=== PATIENT | female | born 1980 | race Caucasian/White ===

== ENCOUNTER 2021-03-14 14:15 | Emergency (ER) | payer OTHER, SELFPAY ==
[2021-03-14 14:20] VITALS: BP 118/82; PULSE 63; RESP 16; TEMP 36.1; O2SAT 100
[2021-03-14 16:49] VITALS: BP 119/79; PULSE 61; RESP 16; O2SAT 100
--- NOTE | 2021-03-14 17:07 | ED.GENADULT ---
HPI - General Adult General Chief complaint: Headache Stated complaint: headache Time Seen by Provider: 03/14/21 16:49 Source: patient and RN notes reviewed History of Present Illness HPI narrative: Patient is a 40 y/o female complaining of headache starting this morning. She describes her headache as throbbing and rates it as 10/10. She states that her headache is mostly on the left side with radiation to left neck. She took Fioricet, which did not help. She has some nausea, but no vomiting. She has no focal weakness or numbness. Related Data Allergies Allergy/AdvReac Type Severity Reaction Status Date / Time Sulfa (Sulfonamide Allergy Hives Verified 03/14/21 16:56 Antibiotics) Review of Systems Constitutional: Constitutional: Denies chills, Denies fever(s), Reports headache(s) and Denies weakness Eyes: Eyes: Denies blurry vision ENT: Reports headache(s) and Reports neck pain Comments: +left ear pain Cardiovascular: Cardiovascular: Denies chest pain and Denies dyspnea Respiratory: Respiratory: Denies cough and Denies dyspnea Gastrointestinal: Gastrointestinal: Denies abdominal pain, Denies diarrhea, Denies nausea and Denies vomiting Genitourinary: Genitourinary: Denies hematuria and Denies dysuria Musculoskeletal: Musculoskeletal: Denies back pain and Denies neck pain Neurologic: Reports headache(s) and Denies weakness Exam Const: General: no acute distress and well developed Orientation/consciousness: oriented to person, oriented to place, oriented to time and patient oriented x3 HENMT: Head: normocephalic Ears: external ears normal General nose exam: Normal external nose present Eyes: General: appearance normal, both eyes and all related structures Conjunctivae: conjunctivae normal Neck: Neck: normal visual inspection and full ROM Chest: Chest palpation & inspection: normal inspection of the chest and no tenderness Resp: Effort & Inspection: normal respiratory effort Auscultation: clear to auscultation bilaterally Cardio: Rate: regular rate Rhythm: regular rhythm GI: GI Palp: No abdominal tenderness and Yes Soft to palpation Skin: General skin exam: normal color and turgor normal Neuro: General: oriented to person, oriented to place, oriented to time and patient oriented x3 Cranial nerves: Yes CN's II-XII intact bilaterally Cognition (Neuro): normal cognition Speech: normal speech Motor exam (neuro): 5/5 motor strength present throughout Sensory Exam: normal sensation Coordination: [id number]-[id number] test normal and qhui-dg-gjgw test normal Extrem: General: normal to inspection, full ROM and no pedal edema Psych: Appearance: grossly normal Mental Status: mental status grossly normal Affect: normal affect Course Reevaluation(s) Reevaluation #1: Rechecked. Patient feels well. She has no headache at this time. Date: 03/14/21 Time: 20:02 Vital Signs Vital signs: Vital Signs Temperature 36.1 C L 03/14/21 14:20 Pulse Rate 63 03/14/21 14:20 Respiratory Rate 16 03/14/21 14:20 Blood Pressure 118/82 03/14/21 14:20 Pulse Oximetry 100 03/14/21 14:20 Temperature 36.1 C L 03/14/21 14:20 Pulse Rate 66 03/14/21 20:51 Respiratory Rate 15 03/14/21 20:51 Blood Pressure 110/67 03/14/21 20:51 Pulse Oximetry 100 03/14/21 20:51 Medical Decision Making Vital Signs Vital Signs: Vital Signs Temperature 36.1 C L 03/14/21 14:20 Pulse Rate 63 03/14/21 14:20 Respiratory Rate 16 03/14/21 14:20 Blood Pressure 118/82 03/14/21 14:20 Pulse Oximetry 100 03/14/21 14:20 Temperature 36.1 C L 03/14/21 14:20 Pulse Rate 66 03/14/21 20:51 Respiratory Rate 15 03/14/21 20:51 Blood Pressure 110/67 03/14/21 20:51 Pulse Oximetry 100 03/14/21 20:51 Lab Data Result diagrams: 03/14/21 17:14 03/14/21 17:14 Labs: Lab Results 03/14/21 03/14/21 Range/Units 17:14 17:14 WBC 8.0 (4.5-10.0) K/mm3 RBC 4.42 (4.2-
[2021-03-14] MEDS: diphenhydrAMINE HCl INJ 50 MG/ML VIAL IV PUSH (17:12)
[2021-03-14] MEDS: KETOROLAC 30 MG/ML VIAL (*BKC) IV PUSH (17:12)
[2021-03-14] MEDS: METOCLOPRAMIDE HCL INJ 10 MG/2 ML VIAL IV PUSH (17:12)
[2021-03-14] MEDS: SODIUM CHLORIDE 0.9% IV 1,000 ML 999 ML IV CONT (17:14)
[2021-03-14 17:23] LABS: Basophils Percent Auto 0.1 % (0.2-1.2); Eosinophils Percent Auto 0.5 % (0-4.4); Hematocrit 41.2 % (37.0-47.0); Hemoglobin 13.9 g/dL (12.0-15.0); Immature Granulocyte Absolute 0.02 K/mm3 (0.00-0.031); Immature Granulocyte Percent A 0.3 % (0-0.5); Lymphocytes Absolute Auto 1.63 K/mm3 (0.9-3.2); Lymphocytes Percent Auto 20.5 % (18.3-44.2); Mean Corpuscular HGB Conc 33.7 g/dl (32-36); Mean Corpuscular Hemoglobin 31.4 pg (26-34); Mean Corpuscular Volume 93.2 fl (80-100); Monocytes Absolute Auto 0.6 K/mm3 (0.1-0.6); Monocytes Percent Auto 7.3 % (2.6-8.5); Neutrophils Absolute Auto 5.7 K/mm3 (1.3-6.7); Neutrophils Percent Auto 71.3 % (45.5-73.1); Platelet Count Result 322 k/mm3 (150-375); Red Blood Count 4.42 M/mm3 (4.2-5.4); Red Cell Distribution Width 13.5 % (11.5-14.5)
[2021-03-14 17:39] LABS: Anion Gap 8 mmol/L (8-16); Blood Urea Nitrogen 9 mg/dL (7-17); Calcium 9.3 mg/dL (8.4-10.2); Carbon Dioxide 23 mmol/L (22-30); Chloride 107 mmol/L (98-107); Estimated CRCL calculation 76 ml/min; Estimated Glomerular Filt Rate > 60; Glucose 109 mg/dL (65-110); Potassium 3.8 mmol/L (3.4-5.0); Sodium 138 mmol/L (137-145)
[2021-03-14 20:51] VITALS: BP 110/67; PULSE 66; RESP 15; O2SAT 100
== END 2021-03-14 20:52 | disposition home or self-care (01) ==
PROVIDERS: Emergency Provider Emergency Medicine; PCP Obstetrics & Gynecology
DX: G43.909 Migraine, unspecified, not intractable, without status migrainosus (principal)
CPT/HCPCS: 36415; 80048; 81025; 85025; 96361; 96374; 96375; 99284; J1200; J1885; J2765; J7030

== ENCOUNTER 2021-05-16 08:45 | Emergency (ER) | payer OTHER, SELFPAY ==
--- NOTE | 2021-05-16 08:50 | ED.URI ---
HPI - URI/Sore Throat General Chief Complaint: Upper Respiratory Infection Stated Complaint: Headache,Sore throat,Fatigue Time Seen by Provider: 05/16/21 08:50 Source: patient, family, RN notes reviewed and old records reviewed Mode of arrival: ambulatory Limitations: no limitations History of Present Illness HPI Narrative: 40-year-old female presents to the [facility] with complaints of fatigue, sore throat and headache since last night. Took a migraine medication yesterday. Requesting a COVID test. Missed less than 24 hours. Denies fevers, chest pain, abdominal pain. States that she is COVID vaccinated but not flu vaccinated. Offered a flu test, patient declined. MD elicited complaint: sore throat and other (Fatigue, headache) Related Data Home Medications Medication Instructions Recorded Confirmed [id number]-fuapebyisaxic-fqtm 1 tablet PO DIRECTED 05/16/21 05/16/21 levothyroxine 50 mcg PO DAILY 05/16/21 05/16/21 Allergies Allergy/AdvReac Type Severity Reaction Status Date / Time Sulfa (Sulfonamide Allergy Hives Verified 05/16/21 08:47 Antibiotics) Review of Systems Review of Systems: All systems reviewed & are unremarkable except as noted in HPI and below Constitutional: Constitutional: Reports as per HPI, Denies chills, Reports fatigue, Denies fever(s) and Denies headache(s) Eyes: Eyes: Reports no additional eye complaints ENT: Reports as per HPI, Denies vertigo, Denies dizziness, Denies headache(s), Denies nasal congestion and Reports sore throat Cardiovascular: Cardiovascular: Reports no additional cardiovascular complaints, Denies chest pain, Denies syncope, Denies rapid heart rate and Denies dyspnea Respiratory: Respiratory: Reports no additional respiratory complaints, Denies cough, Denies dyspnea and Denies wheezing Gastrointestinal: Gastrointestinal: Reports no additional gastrointestinal complaints, Denies abdominal pain, Denies diarrhea, Denies nausea and Denies vomiting Musculoskeletal: Musculoskeletal: Reports no additional musculoskeletal complaints and Denies numbness Integumentary/Breasts: Skin/Breast: Reports system reviewed and no additional complaints, except as docu Neurologic: Reports as per HPI, Denies vertigo, Denies dizziness, Denies syncope, Reports headache(s), Denies focal weakness and Denies numbness Psychiatric: Psychiatric: Reports no additional psychiatric complaints Allergic/Immunologic: Allergic/Immunologic: Reports no additional allergic/immunologic complaints and Denies wheezing PMFSH Past Medical History Medical History (Updated 05/16/21 @ 09:02 by Tiffanie Hernandez) Migraine Thyroid disorder Comments At the time of my signature, I reviewed and agree with the nursing past medical, surgical, social, and family history. There is no relevant family history pertinent to the patient complaint. Exam Const: General: cooperative, healthy appearing, no acute distress, well developed and alert Nutritional Appearance: well nourished Orientation/consciousness: patient oriented x3 Limitations: no limitations HENMT: Head: normal to inspection Ears: external ears normal, TM's normal bilaterally and EAC's normal Eyes: Conjunctivae: conjunctivae normal Pupils: Equal, round and reactive pupils present Direct Ophthalmoscopy: no photophobia Neck: Neck: normal visual inspection, no lymphadenopathy and no meningeal signs Chest: Chest palpation & inspection: normal inspection of the chest Resp: Effort & Inspection: normal respiratory effort and no use of accessory muscles Auscultation: clear to auscultation bilaterally, no crackles, no rales, no rhonchi and no wheezes Cardio: Rate: regular rate Rhythm: regular rhythm Back/Spine/Pelvis: Back: no CVA tenderness Skin: General skin exam: normal color Rashes: no rashes Wounds: no wounds Neuro: General: patient oriented x3, moves all extremities, no meningeal signs and no focal motor deficits Cranial nerves: Yes Equal, ro
[2021-05-16 08:54] VITALS: BP 125/67; PULSE 68; RESP 16; TEMP 36.2; O2SAT 99
== END 2021-05-16 09:05 | disposition home or self-care (01) ==
PROVIDERS: Emergency Provider Nurse Practitioner
DX: B34.9 Viral infection, unspecified (principal); Z20.822 Contact with and (suspected) exposure to COVID-19; E07.9 Disorder of thyroid, unspecified
CPT/HCPCS: 99211; G0463

== ENCOUNTER → 2021-05-17 09:20 | Outpatient (CLI) | payer OTHER, SELFPAY ==
[2021-05-17 21:10] LABS: SARS-CoV-2 RNA PCR Negative
== END ==
PROVIDERS: Visit Provider Nurse Practitioner
DX: B34.9 Viral infection, unspecified (principal); Z20.822 Contact with and (suspected) exposure to COVID-19
CPT/HCPCS: C9803; U0003; U0005

== ENCOUNTER 2022-02-09 03:24 | Emergency (ER) | payer OTHER, SELFPAY ==
[2022-02-09] VITALS (20 sets, daily range): BP systolic 108–138; BP diastolic 64–82; PULSE 58–82; RESP 10–18; TEMP 36.4; O2SAT 98–100
[2022-02-09] MEDS: SODIUM CHLORIDE 0.9% IV 1,000 ML 999 ML IV CONT (04:29)
[2022-02-09] MEDS: KETOROLAC 30 MG/ML VIAL (*BKC) IV PUSH (04:30)
[2022-02-09] MEDS: diphenhydrAMINE HCl INJ 50 MG/ML VIAL 25 MG IV PUSH (04:31)
[2022-02-09] MEDS: METOCLOPRAMIDE HCL INJ 10 MG/2 ML VIAL IV PUSH (04:35)
--- NOTE | 2022-02-09 04:37 | ED.HA ---
HPI - Headache General Chief Complaint: Headache Stated Complaint: migraine Time Seen by Provider: 02/09/22 04:02 History of Present Illness HPI Narrative: Patient is a 41-year-old female who presents ER with headache. Ongoing for 2 days. Right posterior moving to right spiritism. Associated with photophobia no improvement with Fioricet. She has had some nausea with vomiting. No known triggers. No new stress. Related Data Home Medications Medication Instructions Recorded Confirmed fmqfncfpdh-zvryjrdrlkxwv-prsqhnvw 1 tablet PO DIRECTED 05/16/21 05/16/21 50 mg-325 mg-40 mg tablet levothyroxine 50 mcg tablet 50 mcg PO DAILY 05/16/21 05/16/21 Allergies Allergy/AdvReac Type Severity Reaction Status Date / Time Sulfa (Sulfonamide Allergy Hives Verified 05/16/21 08:47 Antibiotics) Review of Systems Review of Systems: All systems reviewed & are unremarkable except as noted in HPI and below Constitutional: Constitutional: Denies chills and Denies fever(s) Eyes: Eyes: Denies change in vision and Reports photophobia ENT: Denies nasal congestion and Denies sore throat Gastrointestinal: Gastrointestinal: Denies abdominal pain, Reports nausea and Reports vomiting Neurologic: Reports headache(s), Denies focal weakness and Denies numbness PMFSH Past Medical History Medical History (Updated 02/09/22 @ 05:45 by Riccardo Lund MD) Migraine Thyroid disorder Surgical History Surgical History (Updated 02/09/22 @ 04:38 by Riccardo Lund MD) No pertinent past surgical history Social History Social History (Updated 02/09/22 @ 04:38 by Riccardo Lund MD) Smoking status: Never smoker Exam Narrative: GENERAL: Uncomfortable-appearing, lying in bed with sunglasses on and lights off, Well-nourished. HEAD: Normocephalic, atraumatic. CHEST: Clear to auscultation. No respiratory distress. HEART: Regular rate and rhythm. Normal peripheral pulses. EXTREMITIES: Normal range of motion. No edema. SKIN: Warm, dry, no rash. NEURO: Alert and oriented x3. PSYCH: Normal mood and affect. Course Course Emergency Course: Headache improved with Reglan/Benadryl/Toradol. Discharge home. Vital Signs Vital signs: Vital Signs Temperature 97.5 F L 02/09/22 03:37 Pulse Rate 77 02/09/22 03:37 Respiratory Rate 14 02/09/22 03:37 Blood Pressure 138/64 02/09/22 03:37 Pulse Oximetry 100 02/09/22 03:37 Oxygen Delivery Room Air 02/09/22 03:37 Temperature 97.5 F L 02/09/22 03:37 Pulse Rate 64 02/09/22 04:31 Respiratory Rate 17 02/09/22 04:31 Blood Pressure 108/78 02/09/22 04:31 Pulse Oximetry 98 02/09/22 04:31 Oxygen Delivery Room Air 02/09/22 03:37 Discharge Plan Discharge Clinical Impression: Migraine Patient Disposition: Home, Self-Care Condition: Stable Instructions: Migraine Headache (ED) Additional Instructions: Return to the ER if fever over 100.4 ?F, you cannot keep down food/water/medication, you develop focal weakness or numbness in arm or leg, you have additional concerns. Prescriptions: No Action lyorfgajrl-agqsyiojcrfym-oxhl 50-325-40 mg tablet 1 tablet PO DIRECTED levothyroxine 50 mcg tablet 50 mcg PO DAILY Follow-up/Referrals: PHYSICIAN,OUTSIDE MACHINIST APPRENTICE [Primary Care Provider] - Satya Boyce MD [Physician] - 1 Week
== END 2022-02-09 06:14 | disposition home or self-care (01) ==
PROVIDERS: Emergency Provider Emergency Medicine
DX: G43.909 Migraine, unspecified, not intractable, without status migrainosus (principal); E07.9 Disorder of thyroid, unspecified
CPT/HCPCS: 96361; 96374; 96375; 99284; J1200; J1885; J2765; J7030

== ENCOUNTER 2023-01-13 10:38 | Emergency (ER) | payer OTHER, SELFPAY ==
--- NOTE | 2023-01-13 10:39 | ED.EYEPROB ---
HPI - Eye Problem General Chief complaint: Eye Problems Stated complaint: Eyes Irritation Time Seen by Provider: 01/13/23 10:39 Source: patient Mode of arrival: ambulatory Limitations: no limitations History of Present Illness HPI Narrative: Patient is a 42-year-old female who presents with bilateral eye irritation, right worse than left. Patient states right eye was matted shut when she woke up and had thick yellow-green discharge. Patient states she went to [employer] yesterday. Patient states eyes feel irritated and burning sensation. Denies any changes in vision or eyelid swelling. Denies any fever, chills, congestion, sore throat, ear pain Related Data Allergies Allergy/AdvReac Type Severity Reaction Status Date / Time Sulfa (Sulfonamide Allergy Hives Verified 01/13/23 10:41 Antibiotics) Review of Systems Review of Systems: All systems reviewed & are unremarkable except as noted in HPI and below Constitutional: Constitutional: Denies body ache(s), Denies fever(s), Denies headache(s), Denies malaise and Denies weakness Eyes: Eyes: Denies blurry vision, Reports eye discharge, Reports irritation, Reports itchy eyes, Denies loss of vision and Denies eye pain ENT: Denies otalgia, Denies headache(s), Denies nasal discharge, Denies sinus pain and Denies sore throat Cardiovascular: Cardiovascular: Denies chest pain, Denies irregular heart rhythm and Denies dyspnea Respiratory: Respiratory: Denies dyspnea Gastrointestinal: Gastrointestinal: Denies abdominal pain, Denies diarrhea, Denies nausea and Denies vomiting Musculoskeletal: Musculoskeletal: Denies back pain, Denies myalgias and Denies arthralgias Integumentary/Breasts: Skin/Breast: Denies pruritus and Denies rash Neurologic: Denies headache(s), Denies loss of vision and Denies weakness Psychiatric: Psychiatric: Reports no additional psychiatric complaints Allergic/Immunologic: Allergic/Immunologic: Reports itchy eyes PMFSH Past Medical History Medical History Migraine Thyroid disorder Surgical History Surgical History No pertinent past surgical history Social History Social History Smoking status: Never smoker Comments At time of signature, agree with nursing past medical, surgical, social and family history. There is no relevant family history pertinent to the presenting complaint. Exam Const: General: cooperative, healthy appearing, comfortable, no acute distress and well nourished Nutritional Appearance: well nourished Orientation/consciousness: patient oriented x3 Limitations: no limitations HENMT: Head: normal to inspection, normocephalic and atraumatic Ears: external ears normal Face/Nose/Sinus: Normal external nose present, normal facial exam and face symmetric Face and sinus: normal facial exam and face symmetric Mouth: Yes lip normal Eyes: General: appearance normal, both eyes and all related structures Visual Gonzalez: normal visual gonzalez by confrontation Alignment and Position: alignment normal and position normal Periorbital: periorbital findings normal Eyelids: eyelids normal Conjunctivae: conjunctival abnormality bilateral conjunctival injection diffuse and discharge mucoid Sclera: scleral abnormality bilateral scleral injection diffuse Pupils: Equal, round and reactive pupils present EOM: EOMs intact bilaterally Direct Ophthalmoscopy: no photophobia Other: No hyphema, no foreign body under the lids. Neck: Neck: normal visual inspection, full ROM, no lymphadenopathy and no meningeal signs Chest: Chest palpation & inspection: normal inspection of the chest Resp: Effort & Inspection: normal respiratory effort and able to speak in complete sentences Auscultation: clear to auscultation bilaterally Cardio: Rate: regular rate Rhythm: regular rhythm Hea
[2023-01-13 10:47] VITALS: BP 105/62; PULSE 62; RESP 16; TEMP 36.6; O2SAT 100
== END 2023-01-13 11:00 | disposition home or self-care (01) ==
PROVIDERS: Emergency Provider Nurse Practitioner Family
DX: H10.9 Unspecified conjunctivitis (principal); E03.9 Hypothyroidism, unspecified
CPT/HCPCS: 99213; G0463

== ENCOUNTER 2023-05-13 12:35 | Emergency (ER) | payer OTHER, SELFPAY ==
--- NOTE | 2023-05-13 12:40 | ED.EAR ---
HPI - Ear Problem General Chief complaint: Ear Stated complaint: Left Ear Irritation Time Seen by Provider: 05/13/23 12:37 Source: patient Mode of arrival: ambulatory Limitations: no limitations History of Present Illness HPI Narrative: Sunni is a 42-year-old female patient presenting to the clinic today with complaints of runny nose, cough, congestion, sore throat, left ear pain, body aches, chills times 2-3 days. She reports the left ear pain just started last night. Related Data Allergies Allergy/AdvReac Type Severity Reaction Status Date / Time Sulfa (Sulfonamide Allergy Hives Verified 05/13/23 12:48 Antibiotics) Review of Systems Review of Systems: Pertinent positives per HPI. Patient denies any rash, headache, visual changes, dizziness, shortness of breath, chest pain, palpitations, nausea, vomiting, diarrhea, constipation, abdominal pain, or any urinary issues. PMFSH Past Medical History Medical History Migraine Thyroid disorder Surgical History Surgical History No pertinent past surgical history Social History Social History Smoking status: Never smoker Comments At the time of my signature, I reviewed and agree with the nursing past medical, surgical, social, and family history. There is no relevant family history pertinent to the patient complaint. Exam Narrative: General: Well-developed, well nourished, in no apparent distress Head: Normocephalic, atraumatic Eyes: Pupils equally round and reactive to light bilaterally, EOM intact, sclera and conjunctive clear, no discharge, lids normal Ears: Right TM intact and clear, Left TM intact, bulging, red, ear canals clear, no drainage, grossly hearing normal. Nose: Nares patent, clear nasal discharge, no inflammation, no sinus tenderness. Mouth: Oropharynx red without lesions or masses, good dentition, MMM. Neck: Supple, trachea midline, no enlargement of anterior or posterior cervical nodes, no thyroid masses or goiter palpable. Cardio: Regular rate and rhythm, s1 and s2 normal, no murmur appreciated. Resp: Clear to auscultation bilaterally anteriorly and posteriorly, no rhonchi, rales, wheezing or rubs Course Course Emergency Course: Portions of this record may have been created with voice recognition software. Level of Care: Express Care Visit Vital Signs Vital signs: Vital signs reviewed Medical Decision Making MDM Narrative Medical decision making narrative: At the time of visit patient is resting comfortably on the exam table. Patient appears to be nontoxic. Supportive measures were discussed with the patient and they voiced understanding discharge instructions and agrees to treatment plan. Return precautions reviewed Discharge Plan Discharge Clinical Impression: Acute viral syndrome URI (upper respiratory infection) Qualifiers: URI type: unspecified viral URI Qualified Code(s): J06.9 - Acute upper respiratory infection, unspecified Pharyngitis Qualifiers: Pharyngitis/tonsillitis etiology: unspecified etiology Qualified Code(s): J02.9 - Acute pharyngitis, unspecified Otitis media Qualifiers: Otitis media type: suppurative Chronicity: acute Laterality: left Recurrence: non-recurrent Spontaneous tympanic membrane rupture: without spontaneous rupture Qualified Code(s): H66.002 - Acute suppurative otitis media without spontaneous rupture of ear drum, left ear Patient Disposition: Home, Self-Care Condition: Stable Instructions: Antibiotic Form, Pharyngitis (ED), Ear Infection (ED), Upper Respiratory Infection (ED), Viral Syndrome (ED) Additional Instructions: COVID and influenza testing was negative in the clinic today. Take prescription medications only as prescribed-Prednisone and amoxicillin Increase fluids and stay well h
[2023-05-13 12:47] VITALS: BP 131/63; PULSE 81; RESP 18; TEMP 37.2; O2SAT 100
[2023-05-13 12:48] VITALS: BP 131/63; PULSE 81; RESP 18; TEMP 37.2; O2SAT 100
== END 2023-05-13 13:03 | disposition home or self-care (01) ==
PROVIDERS: Emergency Provider Nurse Practitioner Family
DX: B34.9 Viral infection, unspecified (principal); J06.9 Acute upper respiratory infection, unspecified; J02.9 Acute pharyngitis, unspecified; H66.002 Acute suppurative otitis media without spontaneous rupture of ear drum, left ear; Z20.822 Contact with and (suspected) exposure to COVID-19
CPT/HCPCS: 87426; 87804; 99213; G0463

== ENCOUNTER 2024-05-27 19:49 | Emergency (ER) | payer OTHER, SELFPAY ==
[2024-05-27 19:59] VITALS: BP 128/85; PULSE 68; RESP 16; TEMP 37.2; O2SAT 99
[2024-05-27 20:51] LABS: EDINFLUASCREEN Negative (Negative); EDINFLUBSCREEN Negative (Negative)
--- NOTE | 2024-05-27 20:56 | ED.ABDPAIN ---
HPI - Abdominal Pain General Chief Complaint: Abdominal Pain Stated Complaint: stomach pains Time Seen by Provider: 05/27/24 20:40 Source: patient and RN notes reviewed Mode of arrival: ambulatory Limitations: no limitations History of Present Illness HPI narrative: Patient presents today with a 4 to five-day history of upper abdominal pain that is only present after eating and lasts for approximately 2 hours. She also reports some intermittent diarrhea. Denies nausea, vomiting, fever, acid reflux heartburn symptoms. No history of gastritis. No history of appendectomy or cholecystectomy. She currently rates her pain 2/10. She has tried Gas-X, Pepto-Bismol, Tums without relief. Related Data Allergies Allergy/AdvReac Type Severity Reaction Status Date / Time Sulfa (Sulfonamide Allergy Hives Verified 05/27/24 20:39 Antibiotics) Review of Systems Review of Systems: CONSTITUTIONAL: Denies body aches, fever, chills, or sweats. EYES: Denies visual changes, redness, or discharge. ENT: Denies rhinorrhea, congestion, sore throat, or otalgia. CARDIOVASCULAR: Denies chest pain, palpitations, or edema. RESPIRATORY: Denies cough or dyspnea. GASTROINTESTINAL: Denies nausea, vomiting. + diarrhea, abdominal pain GENITOURINARY: Denies dysuria or hematuria. SKIN: Denies rash, itching, or wounds. MUSCULOSKELETAL: Denies back pain, joint pain, or myalgia. NEUROLOGIC: Denies headache, numbness, tingling, or weakness. PSYCH: Denies depression or anxiety. PMFSH Past Medical History Medical History Migraine Thyroid disorder Surgical History Surgical History No pertinent past surgical history Social History Social History Smoking status: Never smoker Comments At time of signature, I have reviewed and agree with nursing past medical, surgical, social and family history unless otherwise noted. Please see nursing chart for further information. There is no relevant family history pertinent to the presenting complaint Exam Narrative: GENERAL: Well-appearing, well-nourished, and in no acute distress. HEAD: Normocephalic, atraumatic. EYES: EOMI. No redness or drainage. Conjunctivae normal. ENT: Mucous membranes pink and moist. NECK: Normal AROM. CHEST: No respiratory distress. Clear to auscultation. HEART: Regular rate and rhythm. No murmur appreciated. ABDOMEN: Soft, nontender, nondistended, normal active bowel sounds. EXTREMITIES: Normal range of motion. No edema. SKIN: Warm, dry, no rash. Capillary refill normal. Normal skin turgor. NEURO: No focal deficits. Alert and oriented x3. Gait steady. PSYCH: Normal affect. No signs of depression or anxiety. Course Course Level of Care: Express Care Visit Vital Signs Vital signs: Vital Signs Temperature 98.9 F 05/27/24 19:59 Pulse Rate 68 05/27/24 19:59 Respiratory Rate 16 05/27/24 19:59 Blood Pressure 128/85 05/27/24 19:59 Pulse Oximetry 99 05/27/24 19:59 Oxygen Delivery Room Air 05/27/24 19:59 Temperature 98.9 F 05/27/24 19:59 Pulse Rate 68 05/27/24 19:59 Respiratory Rate 16 05/27/24 19:59 Blood Pressure 128/85 05/27/24 19:59 Pulse Oximetry 99 05/27/24 19:59 Oxygen Delivery Room Air 05/27/24 19:59 Reviewed MDM - Abdominal Pain MDM Narrative Medical decision making narrative: Influenza negative. Patient requested influenza test. Patient does not have an acute abdomen today. Discussed eating some bland foods and taking omeprazole to see if this helps with her symptoms. Recommend PCP or GI follow-up for further evaluation. ED precautions given. Differential Diagnosis Differential diagnosis: Likely abdominal pain, gastroenteritis and other (Gastritis, GERD, cholecystitis, biliary colic) Lab Data Attestation: I reviewed the patient's lab results. Labs: Lab Results 05/27/24 Range/Units 20:47 POC Influenza A Ag Negative (Negative) POC Influenza B Ag Negative (Negative) Critical Care Time Critical Care Time Critical Care Time: No Discharge Plan Discharge Clinical Impression: Intermittent upper abdominal pain Patient Disposition: Home, Self-Care Condition: Stable Instructions: Gastritis (DC), Diet for Stomach Ulcers and Gastritis (ED) Additional Instructions: Please take the omeprazole as prescribed. Stay with bland foods for the next several days to see if this helps with your symptoms. Stay elevated for at least 2 hours after eating before going to bed. Schedule a follow-up visit with either a horse racer or PCP. You may call the physician liaison number to help find a physician at [phone]. As discussed, if symptoms worsen in any way or you start running a fever or vomiting, please go to the ER immediately for further evaluation and treatment. Your blood pressure was elevated above 120/80 today at Urgent Care. This puts you above the threshold for follow up. Please schedule a followup visit with your personal physician as soon as possible, for further evaluation and treatment. Even blood pressure exceeding 120/80 may indicate pre-hypertension. Patient Language: Kazakh Prescriptions: New omeprazole 20 mg capsule,delayed release(DR/EC) 20 mg PO BID 10 Days Qty: 20 0RF No Action prednisone 20 mg tablet 40 mg PO DAILY 5 Days Qty: 10 0RF amoxicillin 875 mg tablet 875 mg PO Q12H 10 Days Qty: 20 0RF Follow-up/Referrals: PHYSICIAN,ASSOCIATE DIRECTOR CAREER SERVICES [Primary Care Provider] - Desean Mai MD [Physician] - Time of Disposition: 20:54
== END 2024-05-27 21:00 | disposition home or self-care (01) ==
PROVIDERS: Emergency Provider Nurse Practitioner
DX: R10.10 Upper abdominal pain, unspecified (principal)
CPT/HCPCS: 87804; 99213; G0463

== ENCOUNTER 2024-06-02 13:55 | Outpatient (CLI) | payer OTHER, SELFPAY ==
--- OUTSIDE RECORDS SUMMARY | 2024-06-02 14:07 | XMS_ITS | Clinical Summary ---
Author Organization [facility] Address [facility]. [place], [place] [address] [place] [address] Care Team Providers Care Information Systems Coordinator Name Role Phone Linden Myles NP Primary Care Provider Unavail able Allergies Active Allergy Reactions Criticality Noted Date Comments Sulfa Antibiotics Hives 2011 Medications butalbital-aceta minophen-caffein e 50-325-40 MG tablet Take 1 tablet by mouth every 4 (four) hours. 4 9 Active probiotic capsule Take 1 capsule by mouth daily with breakfast. 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 Irregular periods/menstrual cycles 03/26/2017 Abnormal thyroid blood test 03/26/2017 Acute sinusitis 04/04/2012 Nausea with vomiting 04/04/2012 Contact dermatitis 01/07/2012 Rash 2011 Comments Yes Resolved Problems Problem Noted Date Diagnosed Date Resolved Date Encounter for preventive health examination 2011 01/08/2020 Immunizations Name Administration Dates Next Due Dtap 02/10/2018 Fluarix 12/28/2012 Fluarix (IIV4) 01/23/2019 Influenza (Generic) 02/10/2018 Influenza Adult (Generic) 02/17/2018 Tdap (Generic) 02/17/2018,02/10/2018,09/08/2014 ,11/04/2012 Family History Medical History Relation Comments Diabetes Father Diabetes Mother Seizures Sister Relation Status Comments Father Alive Mother Alive Sister Alive Social History Tobacco Use Types Packs/Day Years Used Date Smoking Tobacco: Never Smokeless Tobacco: Never Alcohol Use Standard Drinks/Week Comments No 0 (1 standard drink = 0.6 oz pur e alcohol) AUDIT-C Answer Date Recorded Frequency of Alcohol Consumption Never 03/25/2018 Average Number of Drinks Not on file 018 Frequency of Binge Drinking Not on file 02/28 PHQ-2 Answer Date Recorded PHQ-2 Score - If the patient scores above 3, please move on to questions 3-9 0 03/30/2020 Comments Yes Sex and Gender Information Value Date Recorded Sex Assigned at Not on file Legal Sex Female 4:19 PM CDT Gender Identity Not on file Sexual Orientation Not on file Last Filed Vital Signs Vital Sign Reading Time Taken Comments Blood Pressure 110/68 03/30/2020 4:06 PM CDL INSTRUCTOR Pulse 75 03/30/2020 4:06 PM CDL INSTRUCTOR Temperature 36.6 ??C (97.8 ??F) 03/30/2020 4:06 PM CS T Respiratory Rate 20 03/30/2020 4:06 PM CDL INSTRUCTOR Oxygen Saturation 98% 03/30/2020 4:06 PM CDL INSTRUCTOR Inhaled Oxygen Concentration - - Weight 65 kg (143 lb 3.2 oz) 03/30/2020 4:06 PM CDL INSTRUCTOR Height 152.4 cm (5') 03/30/2020 4:06 PM CDL INSTRUCTOR Body Mass Index 27.97 03/30/2020 4:06 PM CDL INSTRUCTOR Plan of Treatment Health Maintenance Due Date Last Done Comments Cervical Cancer Screening Pap Smear (Age 30 to 64) Every 3 Years 1981 Annual Physical 1984 Hepatitis C 12/11/1999 Hepatitis B Vaccines (1 of 3 - 19+ 3-dose series) 2000 Cervical Cancer Screening Pap with HPV Testing (Age 30 to 64) Every 5 Years 12/11/2011 Cervical Cancer Screening with HPV 12/11/2011 COVID-19 Vaccine ( season) 2023 Influenza Adult (#1) 2024 01/23/2019, 02/17/2018, 02/10/2018, Additional history exists Mammogram Screening 12/05/2025 12/06/2023, 11/27/2023, 01/25/2022 DTaP, Tdap and Td Vaccines (6 - Td or Tdap) 02/18/2028 02/17/2018, 02/10/2018, 02/10/2018, Additional history exists RSV Immunization or 60+ Years (1 - 1-dose 75+ series) 2056 HPV Vaccines Aged Out No longer eligi ble based on patient's age to complete this topic Meningococcal B Vaccine Aged Out No l onger eligible based on patient's age to complete this topic Meningococcal Vaccine Aged Out No flora delvin eligible based on patient's age to complete this topic Pneumococcal Vaccine: Pediatrics (0 to 5 Years) and At-Risk Patients (6 to 64 Years) Aged Out No longer eligible based on patient's age to complete this topic RSV Immunizations Under 20 Months Aged Out No longer eligible based on patient's age to complete this topic Procedures Procedure Name Priority Date/Time Associated Diagnosis Comments MG DIAG ADD VIEW W VERONIQUE RT Routine 12/06/2023 11:01 AM CDT Abnormal mammogram from Last 3 Months or Most Recently Relevant to Health Maintenance Results * MG DIAG ADD VIEW W VERONIQUE RT (12/06/2023 11:01 AM CDT) Anatomical Region Laterality Modality Breast Right Mammography, Rad iographic Imaging 12/06/2023 10:5 7 AM CDT Impressions 12/06/2023 11:04 AM CDT ===== IMPRESSION: ===== 1. ??No mammographic findings suggestive of malignancy. Assessment: ACR BI-RADS CATEGORY 2 - BENIGN FINDING(S) Recommendation: 1: Routine screening mammogram ??bilateral ??in 1 year Comments: Ordered By: HEIDE LIU Interpreted By: Kenny Pereyra, 12/06/2023 10:57 AM Narrative 12/06/2023 11:04 AM CDT Examination: Digital right diagnostic mammogram Exam Date/Time: 12/06/2023 10:40 AM Reason For Exam: ??Right breast asymmetry, CC view only ?? Comparison: 11/27/2023, 01/25/2022 Technique: Digital diagnostic mammography of the right breast was performed. ??This study was read with the assistance of a computer-aided detection system. 3D tomographic images were obtained. Tissue density: The breast tissue contains scattered fibroglandular densities. Findings: ?? Right retroareolar asymmetry CC view only resolves with spot compression, compatible with normal overlapping tissue. True lateral 3-D images through this area also appear normal. us Heide Liu MD MAMMO Final Result from Last 3 Months or Most Recently Relevant to Health Maintenance Insurance [employer] Care Teams Information Systems Coordinator Relationship Specialty Start Date End Date Linden Myles NP PCP - General Nurse Practitioner Family 02/05/18
--- OUTSIDE RECORDS SUMMARY | 2024-06-02 14:07 | XMS_ITS | Encounter Summary ---
Author Organization [facility] Address [facility] [place], [place] [id number] [place] [address] Care Team Providers Care Aligner Name Role Phone Linden Myles STUCCO MASON Primary Care Provider Unavail able Encounter Details Date Type Department Care Team (Late st Contact Info) Description 10/23/2017 Abstract [facility] CONVERSION [address] [place] [address] , Generic Conversion, Social History Tobacco Use Types Packs/Day Years Used Date Smoking Tobacco: Never Assessed Comments Unknown Sex and Gender Information Value Date Recorded Sex Assigned at Not on file Legal Sex Female 4:19 PM CDT Gender Identity Not on file Sexual Orientation Not on file documented as of this encounter Plan of Treatment Not on file documented as of this encounter Visit Diagnoses Not on filedocumented in this encounter Care Teams Aligner Relationship Specialty Start Date End Date Linden Myles NP PCP - General Nurse Practitioner Family 02/05/18 documented as of this encounter
--- OUTSIDE RECORDS SUMMARY | 2024-06-02 14:07 | XMS_ITS | Clinical Summary ---
Author Organization [facility] Address [address] [place] [address] Care Team Providers Care Client Development Consultant Name Role Phone No, Physician Primary Care Provider [phone] Allergies Active Allergy Reactions Criticality Noted Date Comments Sulfa (Sulfonamide Antibiotics) Hives Medium 11/27 Medications butalbital-aceta minophen-caffein e (ESGIC) 50-325-40 mg per tabletIndication s:Migraine,Tensi on-Type Headache Take 1 tablet by mouth every 4 (four) hours as needed 06/20/2022 Active Active Problems Patient Care Coordination No te Formatting of this note migh t be different from the original. Neck Mass Problem Noted Date Diagnosed Date Neck mass 07/06/2022 Overview (07/06/2022): Added automatically from request for surgery [id number] Surgical History Surgery Date Site/Laterality Comments NECK SURGERY 04/29/2015 - 04/28/2016 Left WISDOM TOOTH EXTRACTION 04/29/2001 - 04/28/2002 INCISION AND DRAINAGE 04/29/2022 - 05/29/2022 neck cyst Medical History Medical History Date Comments Migraine Thyroid disease Neck mass Family History Medical History Relation Name Comments Anesthesia problems Neg Hx Social History Tobacco Use Types Packs/Day Years Used Date Smoking Tobacco: Never Smokeless Tobacco: Never Tobacco Cessation:Counseling Given: Not Answered AUDIT-C Answer Date Recorded Q1: How often do you have a drink containing alc ohol? 2-3 times a week 08/15/2022 Q2: How many drinks containi ng alcohol do you have on a typical day when you are drinking? 1 or 2 08/15/2022 Frequency of Binge Drinking Not on file 07/28 Personal Safety Answer Date Recorded Have you ever been in or are you currently in a harmful physical or emotional relationship or is someone making you feel afraid or unsafe? Denies 08/15/2022 Comments No Sex and Gender Information Value Date Recorded Sex Assigned at Not on file Legal Sex Female 3:00 AM LOSS PREVENTION CONSULTANT Gender Identity Not on file Sexual Orientation Not on file Obstetrics History Last Filed Vital Signs Vital Sign Reading Time Taken Comments Blood Pressure 126/80 08/15/2022 5:40 PM CDT Pulse 82 08/15/2022 5:40 PM CDT Temperature 36.3 ??C (97.3 ??F) 08/15/2022 5:16 PM CD T Respiratory Rate 11 08/15/2022 5:40 PM CDT Oxygen Saturation 100% 08/15/2022 5:40 PM CDT Inhaled Oxygen Concentration - - Weight 63.5 kg (140 lb) 07/24/2022 9:40 AM CDT Height 152.4 cm (5') 07/24/2022 9:40 AM CDT Body Mass Index 27.34 07/24/2022 9:40 AM CDT Plan of Treatment Health Maintenance Due Date Last Done Comments Breast Cancer Screening-Mammogram 1981 Cervical Cancer Screening 1981 Depression Screening 1981 Hepatitis C Screening 1981 Varicella Vaccines (1 of 2 - 13+ 2-dose series) 1994 Hepatitis B Screening 12/11/1999 Regular Well Visit/Exam 18-64 12/11/1999 Covid-19 Vaccine ( season) 2023 01/03/2021, 12/05/2020 Influenza Vaccine (#1) 2023 9, 02/17/2018, 02/17/2018, Additional history exists DTaP/Tdap/Td Vaccine (6 - Td or Tdap) 02/18/2028 02/17/2018, 02/10/2018, 02/10/2018, Additional history exists HPV Vaccines Aged Out No longer eligi ble based on patient's age to complete this topic Pneumococcal vaccine <65 Aged Out No longer eligible based on patient's age to complete this topic Insurance [employer] OPEN ACCESS [employer] Care Teams Client Development Consultant Relationship Specialty Start Date End Date No, Physician PCP - General 05/01/22
--- OUTSIDE RECORDS SUMMARY | 2024-06-02 14:07 | XMS_ITS | Encounter Summary ---
Author Organization [facility] Address [facility]6 [facility] [place], [place] [address] [place] [address] Care Team Providers Care Supervisor Mechanic Boilermaking Name Role Phone Linden Myles BETA TESTER Primary Care Provider Unavail able Encounter Details Date Type Department Care Team (Late st Contact Info) Description 12/04/2012 Abstract [facility] CONVERSION [address] [place] [address] , Generic Conversion, Social History Tobacco Use [...] on filedocumented in this encounter Care Teams Supervisor Mechanic Boilermaking Relationship Specialty Start Date End Date Linden Myles NP PCP - General Nurse Practitioner Family 02/05/18 documented as of this encounter
--- OUTSIDE RECORDS SUMMARY | 2024-06-02 14:07 | XMS_ITS | Patient Health Summary ---
Author Organization [facility] Address [address] [place] [address] Care Team Providers Care Camp Guard Name Role Phone Unavailable Primary Care Provider Unavailabl e Note from [facility],non-owned Affiliates and Associated Physician Practices is amultiple site organization consisting of ambulatory clinics and hospital sitesin [place], [place], [place] and [place]. This disclosure is being madepursuant to the Care Everywhere program and may not contain all information available regarding this patient. 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 AMA (advanced maternal age) primigravida 35+, second trimester 11/29/2017 Social History Tobacco Use Types Packs/Day Years Used Date Smoking Tobacco: Never Assessed Sex and Gender Information Value Date Recorded Sex Assigned at Not on file Gender Identity Not on file Sexual Orientation Not on file Procedures * SONOGRAM - COMPLETE(Performed 12/31/2017) Performed for Evaluate anatomy not seen on prior sonogram, Encounter for ultrasound to assess interval growth of fetus (HCC) * SONOGRAM - COMPLETE(Performed 12/03/2017) Performed for Supervision of high-risk of elderly primigravida (HCC) Results * SONOGRAM - COMPLETE (12/31/2017 9:46 AM CDT) Only the most recent of2 resultswithin the time period is included. Anatomical Region Laterality Modality Other 12/31/2017 9:46 AM CDT Narrative 12/31/2017 11:11 AM CDT ? [facility] ?PHONE: ??FAX: Pat. Name: ?JEFRFEY NELSONNAYE Logan. No: ?[id number] Study Date: ?? 12/31/2017 ??9:46am , Age: ? 1980, 37 Pregnancies: ?? 5, Para 3 Height: ? 60 in Weight: ? 145 lb LMP: ?Unknown GA by Base: ?? 22w3d ?? GURMEET: 05/03/2018 GA by US: ? 22w2d ?? GURMEET: 05/04/2018 GA Selected: ??22w3d (From Baselin) GURMEET: ?05/03/2018 Referring MD: Heide Alexandra MD Data Migration Consultant: ??Mayte Gtz RDMS CPT4: ? 92949 BMI: ?28.32 Hist/Ind: ? Incomplete anatomic survey ?AMA, declined genetic testing MEASUREMENTS & AGE ? GROWTH EVALUATION Measurement ??GA ? Range ? Srce %for GA Ratios ----- ---- ------- BPD ??5.5 cm 22w5d ([id number]) Hadl BPD 55% FL/BPD 0.72 HC ??20.2 cm 22w2d ([id number]) Hadl HC ??32% FL/AC ??0.22 (0.20 - 0.24) AC ??18.2 cm 23w0d ([id number]) Hadl AC ??60% HC/AC ??1.11 (1.04 - 1.23) FL ?? 3.9 cm 22w5d (78o8j-84y4m) Hadl FL ??47% CI ? 0.76 (0.70 - 0.86) HL ?? 3.7 cm 22w5d ([id number]) John HL ??54% GA for sonogram 22w2d ([id number]) ?? Weight Estimate: based on (BPD,HC,AC,FL) Hadlock ?Weight: 535 gm (457-613gm) Hadloc ? : 1lbs, 2oz ? Normal: 517 gm (388-646gm) Hadloc ? Wt% ? 62% for 22w3d Heart Rate: 153 bpm Amniotic Fluid Index: 06.1cm (Deepest Pocket) EVAL, PLACENTA Presentation: breech Umbilical Cord: 3 Vessels Placenta: anterior Heart Rate: 153 bpm Amniotic Fluid Volume: normal Anatomy!Normal!Abnormal!Suboptimal!Comments Cranium ?! ?? x ??! ?! ?! Mdl (CSP/Thal! ?? x ??! ?! ?! Profile ?! ?? x ??! ?! ?! Lungs ?! ?? x ??! ?! ?! 4 Chamber Hea! ?? x ??! ?! ?! Situs ?! ?? x ??! ?! ?! Stomach ?! ?? x ??! ?! ?! Bowel ?! ?? x ??! ?! ?! Kidneys ?! ?? x ??! ?! ?! Bladder ?! ?? x ??! ?! ?! CLINICAL SUMMARY Study Number: ??2 IMPRESSION: ?? 1) Mares gestation, 22w3d 2) Biometry is consistent with appropriate growth 3) No abnormalities have been detected on the, now complete, anatomic survey NOTE: The patient was advised that ultrasound does not allow detection of all structural or chromosomal abnormalities. ?? RECOMMEND: ??Follow up ultrasound only as clinically indicated Thank you for allowing us the opportunity to care for your patient. Hyun Joya MD <Electronic Signature> ??12/31/2017 11:09am Hyun Joya MD [facility] ORDERABLES
--- OUTSIDE RECORDS SUMMARY | 2024-06-02 14:07 | XMS_ITS | Referral Summary ---
Author Organization [facility] Address [address] [place] [address] Care Team Providers Care Defence Intelligence Analyst Name Role Phone No, Physician Primary Care Provider [phone] Allergies Active Allergy Reactions Criticality Noted Date [...] (07/06/2022): Added automatically from request for surgery [id number] Social History Tobacco Use Types Packs/Day Years [...] on file Legal Sex Female 3:00 AM GRAVEL SCREENER Gender Identity Not on file Sexual Orientation [...] 07/24/2022 9:40 AM CDT Plan of Treatment Not on file Insurance [employer] OPEN ACCESS [employer] OPEN ACCESS Care Teams Defence Intelligence Analyst Relationship Specialty Start Date End Date No, Physician PCP - General 05/01/22
--- OUTSIDE RECORDS SUMMARY | 2024-06-02 14:07 | XMS_ITS | Referral Summary ---
Author Organization [facility] Address [address] [place] [address] Care Team Providers Care Director Of Individual Giving Name Role Phone Unavailable Primary Care Provider Unavailabl e Source Comments [facility],non-owned Affiliates and Associated Physician Practices is amultiple site organization consisting of ambulatory clinics and hospital sitesin [place], [place], [place] and [place]. This disclosure is being madepursuant to the Care Everywhere program and may not contain all information available regarding this patient. 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
--- OUTSIDE RECORDS SUMMARY | 2024-06-02 14:07 | XMS_ITS | Clinical Summary ---
Author Organization [facility] Address [address] [place] [address] Care Team Providers Care Branch Service Specialist Name Role Phone Unavailable Primary Care Provider Unavailabl e Source Comments [facility],non-owned Affiliates and Associated Physician Practices is amultiple site organization consisting of ambulatory clinics and hospital sitesin [place], [place], [place] and [place]. This disclosure is being madepursuant to the Care Everywhere program and may not contain all information available regarding this patient. 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 AMA (advanced maternal age) primigravida 35+, second trimester 11/29/2017 Social History Tobacco Use Types Packs/Day Years Used Date Smoking Tobacco: Never Assessed Sex and Gender Information Value Date Recorded Sex Assigned at Not on file Gender Identity Not on file Sexual Orientation Not on file Plan of Treatment Health Maintenance Due Date Last Done Comments LIPID TESTING 1981 MAMMOGRAM 1981 PAP SMEAR 1981 HIV SCREENING 1996 HEPATITIS C SCREENING 12/06/1999 DTAP/TDAP/TD VACCINES (1 - Tdap) 2000 HEPATITIS B VACCINE (1 of 3 - 19+ 3-dose series) 2000 COVID-19 VACCINE ( - 2023-2 5 season) 2023 INFLUENZA VACCINE (#1) 2023 DEPRESSION SCREENING 04/29/2024 ZOSTER VACCINE (1 of 2) 12/11/2031 HIB VACCINE Aged Out No longer eligi ble based on patient's age to complete this topic HPV VACCINE Aged Out No longer eligi ble based on patient's age to complete this topic MENINGOCOCCAL (Group B) VACCINE Aged Out No longer eligible based on patient's age to complete this topic MENINGOCOCCAL VACCINE Aged Out No flora delvin eligible based on patient's age to complete this topic PNEUMOCOCCAL VACCINE Aged Out No long er eligible based on patient's age to complete this topic
[2024-06-02 14:28] LABS: Hematocrit 37.4 % (37.0-47.0); Hemoglobin 12.3 g/dL (12.0-15.0); Mean Corpuscular HGB Conc 32.9 g/dl (32-36); Mean Corpuscular Hemoglobin 31.5 pg (26-34); Mean Corpuscular Volume 95.7 fl (80-100); Mean Platelet Volume 9.7 fl (7.4-10.4); Platelet Count Result 297 k/mm3 (150-375); Red Blood Count 3.91 M/mm3 (4.2-5.4); Red Cell Distribution Width 11.5 % (11.5-14.5); White Blood Count 9.8 K/mm3 (4.5-10.0)
[2024-06-02 16:25] LABS: Alanine Aminotransferase 18 U/L (6-35); Albumin Level 4.1 g/dL (3.5-5.1); Alkaline Phosphatase 56 U/L (38-126); Amylase 119 U/L (30-110); Anion Gap 9 mmol/L (4-12); Aspartate Amino Transferase 23 U/L (14-36); Bilirubin,Total 0.4 mg/dL (0.2-1.3); Blood Urea Nitrogen 16 mg/dL (7-17); Calcium 9.4 mg/dL (8.4-10.2); Carbon Dioxide 24 mmol/L (22-30); Chloride 103 mmol/L (98-107); Estimated Glomerular Filt Rate > 60; Glucose 95 mg/dL (65-110); Lipase 79 U/L (23-300); Potassium 3.8 mmol/L (3.4-5.0); Sodium 136 mmol/L (137-145)
== END 2024-06-02 13:56 | disposition home or self-care (01) ==
LOC: ANHLAB 13:55
PROVIDERS: Visit Provider Nurse Practitioner Family
DX: R10.13 Epigastric pain (principal)
CPT/HCPCS: 36415; 80053; 82150; 83690; 85027

== ENCOUNTER 2024-06-15 00:21 | Day surgery (SDC) | payer OTHER, SELFPAY ==
[2024-06-12 11:19] VITALS: BMI 28.0
--- OUTSIDE RECORDS SUMMARY | 2024-06-15 00:24 | XMS_ITS | Clinical Summary ---
Author Organization [facility] Address [address] [place] [address] Care Team Providers Care Fuel Cell Engineer Name Role Phone Unavailable Primary Care Provider Unavailabl e Source Comments [facility],non-owned Affiliates and Associated Physician Practices is amultiple site organization consisting of ambulatory clinics and hospital sitesin [place], [place], [place] and [place]. This disclosure is being madepursuant to the Care Everywhere program and may not contain all information available regarding this patient. Last updated 18.[facility] Active Problems Problem Noted Date Diagnosed Date [...]
--- OUTSIDE RECORDS SUMMARY | 2024-06-15 00:24 | XMS_ITS | Clinical Summary ---
Author Organization [facility] Address [facility] [place] [address] Care Team Providers Care Computer Software Engineer Name Role Phone Linden Myles NP Primary [...] (advanced maternal age) primigravida 35+, second trimester ([facility]) 11/29/2017 (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 Irregular periods/menstrual cycles [...] Comments Blood Pressure 110/68 03/30/2020 4:06 PM TEMPER MILL OPERATOR Pulse 75 03/30/2020 4:06 PM TEMPER MILL OPERATOR Temperature 36.6 C (97.8 F) 03/30/2020 4:06 PM TEMPER MILL OPERATOR Respiratory Rate 20 03/30/2020 4:06 PM TEMPER MILL OPERATOR Oxygen Saturation 98% 03/30/2020 4:06 PM TEMPER MILL OPERATOR Inhaled Oxygen Concentration - - Weight 65 kg (143 lb 3.2 oz) 03/30/2020 4:06 PM TEMPER MILL OPERATOR Height 152.4 cm (5') 03/30/2020 4:06 PM TEMPER MILL OPERATOR Body Mass Index 27.97 03/30/2020 4:06 PM TEMPER MILL OPERATOR Plan of Treatment Health Maintenance Due Date [...] 11:04 AM CDT ===== IMPRESSION: ===== 1. No mammographic findings suggestive of malignancy. Assessment: ACR BI-RADS CATEGORY 2 - BENIGN FINDING(S) Recommendation: 1: Routine screening mammogram bilateral in 1 year Comments: Ordered By: HEIDE LIU Interpreted By: Kenny Pereyra, 12/06/2023 10:57 AM Narrative 12/06/2023 11:04 AM CDT Examination: Digital right diagnostic mammogram Exam Date/Time: 12/06/2023 10:40 AM Reason For Exam: Right breast asymmetry, CC view only Comparison: 11/27/2023, 01/25/2022 Technique: Digital diagnostic mammography of the right breast was performed. This study was read with the assistance of a computer-aided detection system. 3D tomographic images were obtained. Tissue density: The breast tissue contains scattered fibroglandular densities. Findings: Right retroareolar asymmetry CC view only resolves with spot compression, compatible with normal overlapping tissue. True lateral 3-D images through this area also appear normal. us Heide Liu MD MAMMO Final Result from Last 3 Months or Most Recently Relevant to Health Maintenance Insurance [employer] Care Teams Computer Software Engineer Relationship Specialty Start Date End Date Linden Myles NP PCP - General Nurse Practitioner Family 02/05/18
--- OUTSIDE RECORDS SUMMARY | 2024-06-15 00:24 | XMS_ITS | Clinical Summary ---
Author Organization [facility] Address [address] [place] [address] Care Team Providers Care Credit Card Specialist Name Role Phone No, Physician Primary Care Provider [phone] Allergies Active Allergy Reactions Criticality Noted Date [...] (07/06/2022): Added automatically from request for surgery [id number] Surgical History Surgery Date Site/Laterality Comments NECK [...] on file Legal Sex Female 3:00 AM MAT GAUGER Gender Identity Not on file Sexual Orientation Not on file Obstetrics History Last Filed Vital Signs Vital Sign Reading Time Taken Comments Blood Pressure 126/80 08/15/2022 5:40 PM CDT Pulse 82 08/15/2022 5:40 PM CDT Temperature 36.3 C (97.3 F) 08/15/2022 5:16 PM CDT Respiratory Rate 11 08/15/2022 5:40 PM CDT [...] Insurance [employer] OPEN ACCESS [employer] OPEN ACCESS Member Subscriber Plan / Payer (Ef fective 2022-Present) Name:Sammi Nelson Relation to Subscriber:Spouse Name:SAMMY NELSON Date of :1971 (Home) Address: [address] [place] [address] Payer ID:[id number] Type:[employer] HMO/PPO Address: [address] [place] [phone] Care Teams Credit Card Specialist Relationship Specialty Start Date End Date No, Physician PCP - General 05/01/22
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
--- OUTSIDE RECORDS SUMMARY | 2024-06-15 00:24 | XMS_ITS | Encounter Summary ---
Author Organization [facility] Address [facility] [place] [address] Care Team Providers Care Audit Machine Operator Name Role Phone Linden Myles RETAIL [employer] MERCHANDISER Primary Care Provider Unavail able Encounter Details Date Type Department Care Team (Late st Contact Info) Description 10/23/2017 Abstract [facility] CONVERSION [address] [place] [address] , Generic Conversion, Social History Tobacco Use [...] on filedocumented in this encounter Care Teams Audit Machine Operator Relationship Specialty Start Date End Date Linden Myles NP PCP - General Nurse Practitioner Family 02/05/18 documented as of this encounter
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
--- OUTSIDE RECORDS SUMMARY | 2024-06-15 00:24 | XMS_ITS | Referral Summary ---
Author Organization [facility] Address [address] [place] [address] Care Team Providers Care Operations Dispatcher Name Role Phone Unavailable Primary Care Provider Unavailabl e Source Comments [facility],non-owned Affiliates and Associated Physician Practices is amultiple site organization consisting of ambulatory clinics and hospital sitesin [place], [place], [place] and [place]. This disclosure is being madepursuant to the Care Everywhere program and may not contain all information available regarding this patient. Last updated 18.[facility] Active Problems Problem Noted Date Diagnosed Date [...]
--- OUTSIDE RECORDS SUMMARY | 2024-06-15 00:24 | XMS_ITS | Encounter Summary ---
Author Organization [facility] Address [facility] [place] [address] Care Team Providers Care Wildlife Ecologist Name Role Phone Linden Myles LIGHTNING PROTECTION INSTALLER Primary Care Provider Unavail able Encounter Details Date Type Department Care Team (Late st Contact Info) Description 12/04/2012 Abstract [facility] CONVERSION [address] [place] [address] , Generic Conversion, Social History Tobacco Use [...] on filedocumented in this encounter Care Teams Wildlife Ecologist Relationship Specialty Start Date End Date Linden Myles NP PCP - General Nurse Practitioner Family 02/05/18 documented as of this encounter
--- OUTSIDE RECORDS SUMMARY | 2024-06-15 00:24 | XMS_ITS ---
Author Organization [facility] Address [address] [facility] [address] [facility] [address] [place] [address] Care Team Providers Care Art Display Maker Name Role Phone Dawn Dodson [phone] REASON FOR VISIT Refill Medications Medication SIG (Take, Route, Frequency, Duration) Notes Start Date End Date Status Escitalopram Oxalate 5 MG 1 tablet at bedtime Orally Once a day for 30 days Dc any existing orders from Linda Blanchard, previous provider. Active Social History Sex Assigned At : Social History Observation Description Sex Assigned At Female Encounters Encounter Location Date Provider Diagnosis [facility] [place] [address] [facility] [address] [facility] [address] [place] [address] 05/14/2024 Dawn Dodson Generalized anxiety disorder F41.1 Assessments Encounter Date Diagnosis (ICD Code) Assessment Notes Treatment Notes Treatment Clinical Notes Section Notes 05/14/2024 Generalized anxiety disorder (ICD-10 - F41.1) Plan Of Treatment Medication Medication Name Sig Start Date Stop Date Notes Escitalopram Oxalate 5 MG 1 tablet at be dtime Orally Once a day for 30 days Dc any existing orders from Linda Blanchard previous provider. Next Appt Details Provider Name:Dawn flores, 08/12/2024 01:15:00 PM, [address], [facility] [address], [place], [address], Progress Notes * ADDIS ToneyAllanOB:[birth year] (43 yo F)Acc No.[id number]:05/14/2024 Patient: Sammi STRATTON :1980 A ge:43 Y S ex:Female Phone: Address:[address] [place], [address] * Refills Refill Escitalopram Oxalate Tablet, 5 MG, Orally, 30, 1 tablet at bedtime, Once a day, 30 days, Refills=1 Subjective: * Chief Complaints: * R efill * Medical History: * Surgical History: * Hospitalization/Major Diagno stic Procedure: * Medications: Objective: * Vitals: * Physical Examination: Assessment: * Assessment: 1. G eneralized anxiety disorder - F41.1 (Primary) Plan: * Treatment: * Procedure Codes: * true * Date: Generated for Julius walsh/Neela/Chelsea on: 0 06/15/2024 12:24 AM GLUING PRESSMAN
--- OUTSIDE RECORDS SUMMARY | 2024-06-15 00:24 | XMS_ITS | Referral Summary ---
Author Organization 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
--- OUTSIDE RECORDS SUMMARY | 2024-06-15 00:24 | XMS_ITS | Patient Health Summary ---
Author Organization [facility] [employer] Address [address] [place] [address] Care Team Providers Care Airline Stewardess Name Role Phone Unavailable Primary Care Provider Unavailabl e Note from [facility],non-owned Affiliates and Associated Physician Practices is amultiple site organization consisting of ambulatory clinics and hospital sitesin [place], [place], [place] and [place]. This disclosure is being madepursuant to the Care Everywhere program and may not contain all information available regarding this patient. Last updated 18.[facility] [employer] Active Problems Problem Noted Date Diagnosed Date [...] AM CDT Narrative 12/31/2017 11:11 AM CDT [facility] PHONE: FAX: Pat. Name: SAMMI NELSON. No: [id number] Study Date: 12/31/2017 9:46am , Age: 08 1980, 37 Pregnancies: 5, Para 3 Height: 60 in Weight: 145 lb LMP: Unknown GA by Base: 22w3d GURMEET: 05/03/2018 GA by US: 22w2d GURMEET: 05/04/2018 GA Selected: 22w3d (From [facility]) GURMEET: 05/03/2018 Referring MD: Heide Alexandra MD Wire Stripper: Mayte Gtz RDMS CPT4: 29148 BMI: 28.32 Hist/Ind: Incomplete anatomic survey AMA, declined genetic testing MEASUREMENTS & AGE GROWTH EVALUATION Measurement GA Range Srce %for GA Ratios ----- ---- ------- BPD 5.5 cm 22w5d (60a9o-44b8d) Hadl BPD 55% FL/BPD 0.72 HC 20.2 cm 22w2d (39d5g-01z7g) Hadl HC 32% FL/AC 0.22 (0.20 - 0.24) AC 18.2 cm 23w0d (29v3m-46u1f) Hadl AC 60% HC/AC 1.11 (1.04 - 1.23) FL 3.9 cm 22w5d (69a3u-68b1j) Hadl FL 47% CI 0.76 (0.70 - 0.86) HL 3.7 cm 22w5d (23k5z-36v9v) John HL 54% GA for sonogram 22w2d (30r2c-43m2g) Weight Estimate: based on (BPD,HC,AC,FL) [place] Weight: 535 gm (457-613gm) Hadloc : 1lbs, 2oz Normal: 517 gm (388-646gm) [place] Wt% 62% for 22w3d Heart Rate: 153 bpm Amniotic Fluid Index: 06.1cm (Deepest Pocket) EVAL, PLACENTA Presentation: breech Umbilical Cord: 3 Vessels Placenta: anterior Heart Rate: 153 bpm Amniotic Fluid Volume: normal Anatomy!Normal!Abnormal!Suboptimal!Comments Cranium ! x ! ! ! Mdl (CSP/Thal! x ! ! ! Profile ! x ! ! ! Lungs ! x ! ! ! 4 Chamber Hea! x ! ! ! Situs ! x ! ! ! Stomach ! x ! ! ! Bowel ! x ! ! ! Kidneys ! x ! ! ! Bladder ! x ! ! ! CLINICAL SUMMARY Study Number: 2 IMPRESSION: 1) Mraes gestation, 22w3d 2) Biometry is consistent with appropriate growth 3) No abnormalities have been detected on the, now complete, anatomic survey NOTE: The patient was advised that ultrasound does not allow detection of all structural or chromosomal abnormalities. RECOMMEND: Follow up ultrasound only as clinically indicated Thank you for allowing us the opportunity to care for your patient. Hyun Joya MD <Electronic Signature> 12/31/2017 11:09am Hyun Joya MD [facility] ORDERABLES
[2024-06-15 12:19] VITALS: BP 119/57; PULSE 65; RESP 18; TEMP 36.4; O2SAT 100
--- NOTE | 2024-06-15 12:26 | WPDANESEPPF ---
Anes - Initial Pre Proc Eval Procedure: Operation Date: 06/15/24 13:30 Proposed Procedures p Esophagogastroduodenoscopy - Desean Mai MD Date/Time: 06/15/24 12:26 Surgeon: Desean Mai MD Pre Op Diagnosis: Epigastric pain, Abdominal distension Patient Data Age: 43 Gender: F Height: 1.52 m Weight: 65.4 kg Last Vital Signs Temp 36.4 C L 06/15/24 12:19 Pulse 65 06/15/24 12:19 Resp 18 06/15/24 12:19 BP 119/57 L 06/15/24 12:19 Pulse Ox 100 06/15/24 12:19 O2 Del Method Room Air 06/15/24 12:19 Allergies Allergy/AdvReac Type Severity Reaction Status Date / Time Sulfa (Sulfonamide Allergy Hives Verified 06/15/24 12:15 Antibiotics) Home Medications ?Medication ?Instructions ?Recorded ?Confirmed ?Type escitalopram oxalate 5 mg tablet 5 mg PO DAILY 06/02/24 06/12/24 History omeprazole 20 mg capsule,delayed 20 mg PO BID 1 month #60 caps 06/02/24 06/12/24 Rx release Patient hx anesthesia problems: none Family hx anesthesia problems: none Results Review: All pre-operative results and documents have been reviewed as part of the pre-operative evaluation. [facility] Past Medical History Medical History (Updated 06/15/24 @ 12:27 by Garfield Frtiz DO) GERD (gastroesophageal reflux disease) Bloating Epigastric pain Migraine Thyroid disorder Surgical History Surgical History No pertinent past surgical history Social History Social History Smoking status: Former smoker Living arrangements: with family Spiritual care concerns: No Anes - Eval Final PreProcedure Day of Procedure 06/15/24 12:26 Patient weight: overweight Heart: regular rate and rhythm Lungs: clear to auscultation Airway: Mallampati scale class II Neurological: alert and oriented Last oral intake: >/= 8 hours ASA classification: II Emergent: no Anesthetic plan: proceed Anesthesia type and monitoring: general GIVS and standard monitoring Results Review: All pre-operative results and documents have been reviewed as part of the pre-operative evaluation. Informed Consent: The patient's anesthetic plan and its attendant risks and benefits were discussed with the patient/family/POA. Questions were solicited and answers provided to the satisfaction of the patient/family/POA.
[2024-06-15] MEDS: LACTATED RINGERS 1,000 ML 150 ML IV CONT (12:41)
--- NOTE | 2024-06-15 13:13 | WPDHPUPDATE1 ---
History and Physical Update Update Date/Time: 06/15/24 13:13 History and Physical has been reviewed, including an updated exam of the patient. There are NO changes in the patient's condition. Risks, benefits, and alternatives have been discussed and questions answered. Patient agrees to proceed with procedure.
[2024-06-15 13:28] VITALS: BP 106/57; PULSE 65; RESP 18; O2SAT 99
[2024-06-15 13:36] LABS: BEDSIDEPREGUCG Negative (Negative)
[2024-06-15 13:38] VITALS: BP 110/53; PULSE 65; RESP 18; O2SAT 100
[2024-06-15 13:48] VITALS: BP 109/80; PULSE 61; RESP 18; O2SAT 100
== END 2024-06-15 14:00 | disposition home or self-care (01) ==
PROVIDERS: Referring Provider Nurse Practitioner Family; Visit Provider Internal Medicine Gastroenterology
PROC: 0DJ08ZZ Inspection of Upper Intestinal Tract, Via Natural or Artificial Opening Endoscopic (ICD-10-PCS; CPT 43239; principal; 2024-06-15 13:30)
DX: R19.5 Other fecal abnormalities (principal); F41.9 Anxiety disorder, unspecified; K21.9 Gastro-esophageal reflux disease without esophagitis; E07.9 Disorder of thyroid, unspecified; Z87.891 Personal history of nicotine dependence
CPT/HCPCS: 43239; 88305; J2003; J2704; J7120